=== PATIENT | male | born 1930 | race Two or more races ===

== ENCOUNTER 2018-05-20 07:22 | Inpatient (IN) | payer MEDICARE ==
[~2018-05-20] VITALS: Ht 177.8 cm; Wt 46.3 kg
[~2018-05-20 07:22] MED LIST: ACET-868 PO; AMLO5TAB7 PO; ATOR10TA PO; BISA10SU8 RC; CLOP75TA15 PO; DIVA125C2 PO; DOCU-141 PO; HYDR-4384 PO; MAGN400O6 PO; MERO500V3 IV; NA P133E RC; SENN-168 PO; ZOLP5TAB2 PO
--- NOTE | 2018-05-20 07:40 | NUR ---
Annabelle garcía in ED - 05/20/18 at 0806 by MICHELLE PT TAISHA RA 88 from [facility] "was found on the side of his bed, PT AOX2, NOT IN RESPIRATORY DISTRESS, V/S STABLE, KEPT RESTED AND COMFORTABLE.
--- NOTE | 2018-05-20 07:40 | NUR ---
PT TAISHA RA 88 from [facility] "was found on the side of his bed, PT AOX3, NOT IN RESPIRATORY DISTRESS, V/S STABLE, KEPT RESTED AND COMFORTABLE.
--- NOTE | 2018-05-20 07:41 | NUR ---
DR. GRIDER AT BEDSIDE FOR EVAL.
--- NOTE | 2018-05-20 08:06 | NUR ---
DOUBLE LINE INSERTED, LABS DRAWNED, EKG DONE REFER TO DR. GRIDER.
--- NOTE | 2018-05-20 08:11 | NUR ---
WHEELED TO [facility] VIA [facility].
[2018-05-20 08:12] LABS: BASOPHILS # (AUTO) 0.1 /CMM (0.0-0.2); BASOPHILS % (AUTO) 0.7 % (0.0-2.0); EOSINOPHILS % (AUTO) 0.6 % (0.0-6.0); HEMATOCRIT 33 % (39-51); LYMPHOCYTES # (AUTO) 1.2 /CMM (0.8-4.8); LYMPHOCYTES % (AUTO) 10.9 % (20.0-44.0); MEAN CORPUSCULAR HGB CONC 33 g/dl (31.0-36.0); MEAN CORPUSCULAR VOLUME 98 fL (80-96); MONOCYTES # (AUTO) 0.7 /CMM (0.1-1.30); MONOCYTES % (AUTO) 6.6 % (2.0-12.0); NEUTROPHILS # (AUTO) 8.9 /CMM (1.8-8.9); NEUTROPHILS % (AUTO) 81.2 % (43.0-81.0); PLATELET COUNT (AUTO) 376 /CMM (150-450)
[2018-05-20 08:20] LABS: ALANINE AMINOTRANSFERASE 20 U/L (12-78); ALBUMIN 2.5 g/dL (3.4-5.0); ALKALINE PHOSPHATASE 107 U/L (46-116); ASPARTATE AMINOTRANSFERASE 23 U/L (15-37); BILIRUBIN,DIRECT 0.1 mg/dL (0.0-0.2); BILIRUBIN,TOTAL 0.4 mg/dL (0.2-1.0); CALCIUM, SERUM 9.6 mg/dL (8.5-10.1); CARBON DIOXIDE 26 mmol/L (21-32); CHLORIDE 120 mmol/L (98-107); CREATININE 2.2 mg/dL (0.6-1.3); GLUCOSE 122 mg/dL (74-106); POTASSIUM 4.6 mmol/L (3.5-5.1); SODIUM SERUM 155 mmol/L (136-145); TOTAL PROTEIN, SERUM 7.2 g/dL (6.4-8.2); UREA NITROGEN, BLOOD 51 mg/dL (7-18)
--- NOTE | 2018-05-20 08:26 | NUR ---
PT BACK FROM RADIOLOGY.
[2018-05-20] MEDS ORDERED: IV NS 0.9% 250 ML BAG IV ONE (10:00)
[2018-05-20] MEDS ORDERED: TDAP [DIPH/PERTUSSIS/TET] 0.5 ML VIAL IM ONE ×2 (11:00→11:10)
--- NOTE | 2018-05-20 13:35 | NUR ---
PT IS ASSIGNED TO [facility]#:308-2, DX: HYPERNATREMIA, AND ACCEPTING MD: JOE
--- NOTE | 2018-05-20 14:17 | NUR ---
report given to temi dunlap for za, pt v/s stable, kept rested and comfortable.
[2018-05-20 14:39] VITALS: BP 155/93
--- NOTE | 2018-05-20 14:45 | NUR ---
QUARTER TRIMMERTIP BANDER 87 YEARS OLD MALE BROUGHT IN VIA GURNEY FORM ER. [facility]. PATIENT IS CONFUSED, SPEECH UNCLEAR. SKIN CHECK DONE WITH GUERDA DEXTER. PATIENT HAS NO PERSONAL BELONGINGS UPON ARRIVAL TO THE UNIT. MAINTAINED SAFETY, WILL CONT TO MONITOR. NOTIFIED DR. DIAZ.
[2018-05-20] MEDS ORDERED: ACETAMINOPHEN 325 MG TABLET PO PRN (15:30)
[2018-05-20] MEDS ORDERED: MAGNESIUM HYDROXIDE 30 ML UDC PO PRN (15:30)
[2018-05-20] MEDS ORDERED: ZOLPIDEM TARTRATE 5 MG TABLET PO PRN (15:30)
[2018-05-20] MEDS ORDERED: MAG HYDROX/AL HYDROX/SIMETH 30 ML UDC PO PRN (15:30)
[2018-05-20] MEDS ORDERED: Z GUARD REMEDY 2 OZ OINT TP PRN (15:30)
[2018-05-20] MEDS ORDERED: HYDROCODONE/APAP 5/325MG 1 EACH TABLET PO PRN (15:30)
[2018-05-20] MEDS ORDERED: ONDANSETRON HCL/PF 4 MG/2 ML VIAL IVP PRN (15:30)
[2018-05-20 16:00] VITALS: BP 155/93
[2018-05-20] MEDS: IV D5/0.45 NACL 1,000 ML IV PRN (16:05)
--- NOTE | 2018-05-20 18:14 | NUR ---
WEBBING SEAMER POUND NET CLOSING NOTES Patient in bed, assisted with feeding. On low flow oxygen at 2L/min via NC, sat. 92%. Sinus rhythm in the tele monitor. IVF infusing, maintained at 75ml/hr. Right arm, right elbow skin tear, dressing CDI. Wound consulted. Incontinent of bladder, urine catheterized, urine specimen send to lab for test. Maintained safety, bed low and locked. Will endorse to oncoming RN. Med recon to follow up.
--- NOTE | 2018-05-20 19:30 | NUR ---
SR. STRATEGIC SOURCING MANAGER NOTES RECEIVED ON BED WATCHING TV PROGRAM,A/O X1,BREATHING REGULAR 94% ON 2L/NC.SR WITH PAC-79 ON TELE MONITOR.INCONTINENT OF URINE,USING DIAPER.WITH IVF INFUSING AT 75ML/HR RATE VIA IV PUMP.SITE PATENT ON RFA.DVT PUMP IN USED FOR DVT PROPHYLAXIS.FALL PRECAUTION OBSERVED,CALL LIGHT IN REACH,NEEDS ANTICIPATED.
[2018-05-20 20:00] VITALS: BP 156/84
[2018-05-20] MEDS ORDERED: BISACODYL SUPP (10 MG) 10 MG/SUPP.RECT SUPP.RECT RC PRN (20:30)
--- NOTE | 2018-05-20 20:30 | NUR ---
DIRECTOR PAYER NOTES CONFUSED,HE PULEED HIS SALINE LOCK,TOOK OFF HIS TELE MONITOR AND DVT PUMP.
[2018-05-20 21:04] LABS: APPEARANCE,URINE CLEAR (CLEAR); BILIRUBIN,URINE NEGATIVE (NEGATIVE); BLOOD, URINE MODERATE Ery/uL (NEGATIVE); COLOR,URINE YELLOW (YELLOW); KETONES,URINE NEGATIVE (NEGATIVE); LEUKOCYTE ESTERASE ,URINE MODERATE (NEGATIVE); NITRITE, URINE POSITIVE (NEGATIVE); PH,URINE 6.5 (5.0-8.0); PROTEIN,URINE 100 mg/dl (NEGATIVE); UGLUCOSE NEGATIVE (NEGATIVE); UROBILINOGEN,URINE 0.2 EU/dL (0.2)
[2018-05-20 21:08] LABS: BACTERIA,URINE Moderate /HPF (None Seen); SQUAMOUS EPITHELIAL CELL,UR Few /HPF (None Seen); WBC,URINE 81-100 /HPF (0-3)
[2018-05-20] MEDS: SENNOSIDES 8.6 MG TABLET PO SCH (21:28)
--- NOTE | 2018-05-20 21:30 | NUR ---
GASKET INSPECTOR NOTES DUE PO MEDS GIVEN WITH APPLE SAUCE,TAKEN WELL.NEGATIVE FOR ASPIRATION
--- NOTE | 2018-05-20 21:45 | NUR ---
FINE UNHAIRER NOTES EVENING CARE RENDERED BY ISACC BELL,TOLERATED WELL.NOTED SLIGHT REDNESS BONY SACRAL AREA.CLEANSE WITH SOAP AND WATER AND APPLIED ZGUARD,MEPILEX
[2018-05-20] MEDS ORDERED: ATORVASTATIN 10 MG TABLET PO SCH (22:00)
[2018-05-21 04:00] VITALS: BP 120/68
--- NOTE | 2018-05-21 06:21 | NUR ---
NIGHT CLUB MANAGER NOTES CALM AND QUIET THRU OUT SHIFT,IVF INFUSING,SITE PATENT LEFT AC.NO FALL ,NO INJURY.CALL LIGHT IN REACH,NEEDS ANTICIPATED.WILL GIVE REPORT TO MEGHAN DUMONT RN FOR LARA.
[2018-05-21 06:29] LABS: BASOPHILS % (AUTO) 0.4 % (0.0-2.0); EOSINOPHILS % (AUTO) 0.9 % (0.0-6.0); HEMATOCRIT 28 % (39-51); HEMOGLOBIN 9.1 g/dL (13.5-17.5); LYMPHOCYTES # (AUTO) 0.9 /CMM (0.8-4.8); LYMPHOCYTES % (AUTO) 8.3 % (20.0-44.0); MEAN CORPUSCULAR HGB CONC 33 g/dl (31.0-36.0); MEAN CORPUSCULAR VOLUME 99 fL (80-96); MONOCYTES # (AUTO) 0.8 /CMM (0.1-1.30); MONOCYTES % (AUTO) 7.5 % (2.0-12.0); NEUTROPHILS # (AUTO) 8.5 /CMM (1.8-8.9); NEUTROPHILS % (AUTO) 82.9 % (43.0-81.0); PLATELET COUNT (AUTO) 287 /CMM (150-450); RED BLOOD CELL COUNT(AUTO) 2.79 MIL/uL (4.5-6.0); WHITE BLOOD COUNT (AUTO) 10.3 K/uL (4.3-11.0)
[2018-05-21 06:48] LABS: CHOLESTEROL 147 mg/dL (<200); HDL CHOLESTEROL 58 mg/dL (40-60); LDL 69 mg/dL (0-99); TRIGLYCERIDES 72 mg/dL (30-150)
[2018-05-21 06:52] LABS: CALCIUM, SERUM 8.9 mg/dL (8.5-10.1); CARBON DIOXIDE 25 mmol/L (21-32); CHLORIDE 121 mmol/L (98-107); CREATININE 1.9 mg/dL (0.6-1.3); GLUCOSE 108 mg/dL (74-106); MAGNESIUM 1.8 mg/dL (1.8-2.4); POTASSIUM 4.8 mmol/L (3.5-5.1); SODIUM SERUM 155 mmol/L (136-145); UREA NITROGEN, BLOOD 45 mg/dL (7-18)
[2018-05-21 08:00] VITALS: BP 126/68
[2018-05-21] MEDS: DIVALPROEX SODIUM 125 MG CAP.SPRINK PO SCH (09:34)
[2018-05-21] MEDS: AMLODIPINE BESYLATE 5 MG TABLET PO SCH (09:35)
[2018-05-21] MEDS: IV D5/0.45 NACL 1,000 ML IV PRN (09:44)
[2018-05-21] MEDS: ASPIRIN 81 MG TAB.CHEW PO SCH (14:22)
[2018-05-21 16:00] VITALS: BP 130/70
[2018-05-21] MEDS: DOCUSATE SODIUM 100 MG CAPSULE PO SCH (18:58)
--- NOTE | 2018-05-21 19:20 | NUR ---
HAND BULLDOZER NOTE PATIENT RESTING IN BED IN STABLE CONDITION, NO RESPIRATORY DISTRESS NOTED, ON O2 VIA NASAL CANNULA AT 2LPM. NO SIGNS OF PAIN. MITTENS ON DUE TO PATIENT ATTEMPTING TO PULL OUT IV SITE OUT. IV FLUIDS INFUSING ORDERED. HEAD OF BED ELEVATED, BED IN LOW LOCKED POSITION, SIDE RAILS UP, CALL LIGHT WITHIN REACH, ENDORSED TO SHIRT IRONER SUPERVISOR NURSE FOR CONTINUITY OF CARE.
--- NOTE | 2018-05-21 19:30 | NUR ---
MS RN NOTES ON BED WATCHING TV PROGRAM,CALM AND QUIET,A/O X1,CONFUSED.ISOLATION PRECAUTION FOR HX ESBL URINE.FALL PRECAUTION,BED ALARM TRIGGERED,BILATERAL MITTENS IN USED,PT TRIED TO PULL OUT IV TUBINGS.DVT PUMP IN USED FOR DVT PROHYLAXIS,RIGHT ARM SKIN COVERED WITH XEROFORM AND KERLIX ORDERED.WILL CONTINUE TO MONITOR STATUS.
[2018-05-21 20:00] VITALS: BP 106/58
[2018-05-21] MEDS: SENNOSIDES 8.6 MG TABLET PO SCH (21:32)
--- NOTE | 2018-05-22 | NUR ---
MS RN NOTES UNABLE TO REPOSITION,SOUND ASLEEP.
[2018-05-22] MEDS: IV D5/0.45 NACL 1,000 ML IV PRN (04:57)
--- NOTE | 2018-05-22 05:00 | NUR ---
MS RN NOTES DRESSING CHANGED DONE RIGHT ARM SKIN TEAR.BILATERAL MITTENS RE APPLIED TO BOTH HANDS FOR SAFETY
--- NOTE | 2018-05-22 06:13 | NUR ---
MS RN NOTES NO SIGNIFICANT CHANGE STATUS THRU OUT SHIFT.CALM AND ABLE TO SLEEP.IVF INFUSING.REMAINS CONFUSED.ISOLATION DISCONTINUED.NEGATIVE FOR C-DIFF.IN NO ACUTE DISTRESS.WILL ENDORSE TO DAY NURSE FOR LARA.
[2018-05-22 08:00] VITALS: BP 104/61
[2018-05-22 08:35] VITALS: BP 104/61
[2018-05-22] MEDS: DIVALPROEX SODIUM 125 MG CAP.SPRINK PO SCH (08:44)
[2018-05-22] MEDS: ASPIRIN 81 MG TAB.CHEW PO SCH (08:44)
[2018-05-22] MEDS: AMLODIPINE BESYLATE 5 MG TABLET PO SCH (08:45)
[2018-05-22 09:59] LABS: BASOPHILS # (AUTO) 0.1 /CMM (0.0-0.2); BASOPHILS % (AUTO) 0.4 % (0.0-2.0); EOSINOPHILS % (AUTO) 0.5 % (0.0-6.0); HEMATOCRIT 27 % (39-51); HEMOGLOBIN 8.5 g/dL (13.5-17.5); LYMPHOCYTES # (AUTO) 0.8 /CMM (0.8-4.8); LYMPHOCYTES % (AUTO) 5.3 % (20.0-44.0); MEAN CORPUSCULAR HGB CONC 32 g/dl (31.0-36.0); MEAN CORPUSCULAR VOLUME 101 fL (80-96); MONOCYTES # (AUTO) 0.7 /CMM (0.1-1.30); MONOCYTES % (AUTO) 4.7 % (2.0-12.0); NEUTROPHILS # (AUTO) 12.8 /CMM (1.8-8.9); NEUTROPHILS % (AUTO) 89.1 % (43.0-81.0); PLATELET COUNT (AUTO) 259 /CMM (150-450); RED BLOOD CELL COUNT(AUTO) 2.65 MIL/uL (4.5-6.0); WHITE BLOOD COUNT (AUTO) 14.3 K/uL (4.3-11.0)
[2018-05-22 10:09] LABS: CALCIUM, SERUM 8.9 mg/dL (8.5-10.1); CARBON DIOXIDE 24 mmol/L (21-32); CHLORIDE 119 mmol/L (98-107); CREATININE 1.8 mg/dL (0.6-1.3); GLUCOSE 109 mg/dL (74-106); MAGNESIUM 1.7 mg/dL (1.8-2.4); POTASSIUM 4.2 mmol/L (3.5-5.1); SODIUM SERUM 154 mmol/L (136-145); UREA NITROGEN, BLOOD 40 mg/dL (7-18)
--- NOTE | 2018-05-22 11:26 | NUR ---
WOUND CARE CONSULT WOUND CARE RECEIVED CONSULT FOR MULTIPLE SKIN TEARS-RIGHT ARM. WOUND CARE WILL DEFER CONSULT AND ALL TREATMENT PLANS TO PLASTIC SURGICAL TEAM WHO ARE CURRENTLY FOLLOWING. PATIENT WITH ISAAC AT 15, ALL PRESSURE ULCER PREVENTION MEASURES ARE NOTED TO BE IN PLACE. PATIENT IS NOTED TO BE ON COMFORT MEASURES ONLY. WILL SEE PRN.
--- NOTE | 2018-05-22 11:30 | NUR ---
MS RN NOTES-- PT SEEN AND EXAMINED BY DR. SANTACRUZ.
--- NOTE | 2018-05-22 11:30 | NUR ---
MS RN NOTES-- PT SEEN AND EXAMINED BY DR. SANTACRUZ.
[2018-05-22] MEDS: IV D5W 1,000 ML IV PRN (15:57)
[2018-05-22 16:32] VITALS: BP 113/78
[2018-05-22] MEDS: ENSURE ENLIVE CHOC 237 ML CAN PO SCH (17:48)
[2018-05-22] MEDS: DOCUSATE SODIUM 100 MG CAPSULE PO SCH (17:48)
--- NOTE | 2018-05-22 18:33 | NUR ---
MS RN OPENING NOTES RECEIVED PT LAYING IN BED WITH HOB SLIGHTLY ELEVATED. PT IS RESTING COMFORTABLY, EASILY AROUSABLE. RESPIRATIONS ARE EVEN AND UNLABORED, NOT IN ANY ACUTE DISTRESS NOTED. NO C/O ANY PAIN, SOB, N/V AT THIS TIME. IV SITE TO LAC INTACT, NO INFILTRATION NOTED. DRESSING KEPT CLEAN AND DRY. WILL REPOSITION PER PROTOCOL. CALL LIGHT IS LEFT WITHIN REACH. WILL CONTINUE TO MONITOR THROUGHOUT SHIFT FOR CONTINUITY OF CARE. Addendum: 05/22/18 at 1846 by JAY ALMANZA RN LATE ENTRY- OPENING NOTES
--- NOTE | 2018-05-22 18:45 | NUR ---
MS RN CLOSING NOTES PT'S NEEDS ANTICIPATED. PT IS A/O X1, AFEBRILE. RESPIRATIONS ARE EVEN AND UNLABORED, NOT IN ANY ACUTE DISTRESS NOTED. NO FACIAL GRIMACING OR MOANING NOTED. IV TO LAC INTACT, NO INFILTRATION NOTED. DRESSING IS KEPT CLEAN AND DRY. IV FLUIDS RUNNING AND TOLERATING WELL. SAFETY MEASURES ARE IN PLACE. ENDORSED TO NEXT SHIFT FOR CONTINUITY OF CARE.
--- NOTE | 2018-05-22 19:39 | NUR ---
MS/RN OPENING NOTES RECEIVED PATIENT IN BED, AWAKE, UNABLE TO FOLLOW SIMPLE COMMAND, RESPIRATIONS EVEN AND UNLABORED, WITH OXYGEN VIA NC AT 2L, SKIN DRY TO TOUCH, REQUIRE MITTEN RESTRAINTS FOR SAFETY. ON IV HYDRATION AT D5W RUNNING AT 75ML /HR WITH NO S/S OF INFILTRATION. BED LOCKED, MONITORED FOR CIRCULATION , REPOSITION FOR COMFORT. RECEIVED ENDORSEMENT FROM AM RN FOR LARA. BED LOCKED.
[2018-05-22 20:00] VITALS: BP 133/78
[2018-05-22 20:11] VITALS: BP 133/78
[2018-05-22] MEDS: SENNOSIDES 8.6 MG TABLET PO SCH (22:06)
--- NOTE | 2018-05-23 06:06 | NUR ---
308-2MS/RN NOTES PATIETN IN BED, ABLE TO SLEEP INTERMITENTLY DURING THE NIGHT, REPOSITIONED FOR COMFORT, KEPT SKIN DRY AND INTACT, MONITORED FOR SAFETY, IV ON LEFT AC FOR HYDRATION, OFFERED FLUIDS, RESPIRATIONS EVEN AND UNLABORED. WILL CONTINUE TO MONITOR. WILL ENDORSE TO AM RN FOR LARA.
--- NOTE | 2018-05-23 07:05 | NUR ---
MS RN INITIAL NOTES Report received at bedside. Patient received in bed, sleeping comfortably, easily aroused. On fluid therapy for dehydration. Not in any type of distress. No facial grimacing or moaning noted. Safety measures in place. Will continue to monitor and assess patient
[2018-05-23 08:00] VITALS: BP 113/66
[2018-05-23] MEDS: ENSURE ENLIVE CHOC 237 ML CAN PO SCH ×3 (08:30→17:35)
[2018-05-23] MEDS: ASPIRIN 81 MG TAB.CHEW PO SCH (08:33)
[2018-05-23] MEDS: AMLODIPINE BESYLATE 5 MG TABLET PO SCH (08:33)
[2018-05-23] MEDS: DIVALPROEX SODIUM 125 MG CAP.SPRINK PO SCH (08:33)
[2018-05-23 09:32] LABS: BASOPHILS # (AUTO) 0.1 /CMM (0.0-0.2); BASOPHILS % (AUTO) 0.8 % (0.0-2.0); HEMATOCRIT 27 % (39-51); LYMPHOCYTES # (AUTO) 0.7 /CMM (0.8-4.8); MEAN CORPUSCULAR HGB CONC 33 g/dl (31.0-36.0); MEAN CORPUSCULAR VOLUME 100 fL (80-96); MONOCYTES # (AUTO) 0.9 /CMM (0.1-1.30); MONOCYTES % (AUTO) 9.6 % (2.0-12.0); NEUTROPHILS # (AUTO) 7.5 /CMM (1.8-8.9); NEUTROPHILS % (AUTO) 80.6 % (43.0-81.0); PLATELET COUNT (AUTO) 275 /CMM (150-450); RED BLOOD CELL COUNT(AUTO) 2.74 MIL/uL (4.5-6.0); WHITE BLOOD COUNT (AUTO) 9.3 K/uL (4.3-11.0)
[2018-05-23 09:38] LABS: CALCIUM, SERUM 9.1 mg/dL (8.5-10.1); CARBON DIOXIDE 23 mmol/L (21-32); CHLORIDE 116 mmol/L (98-107); CREATININE 1.9 mg/dL (0.6-1.3); GLUCOSE 80 mg/dL (74-106); POTASSIUM 4.4 mmol/L (3.5-5.1); SODIUM SERUM 150 mmol/L (136-145); UREA NITROGEN, BLOOD 36 mg/dL (7-18)
[2018-05-23] MEDS: IV D5W 1,000 ML IV PRN (12:47)
--- NOTE | 2018-05-23 13:15 | NUR ---
MS RN CLOSING NOTES Report given at bedside. Patient remained in bed, awake, easily aroused. Not in any type of distress. No facial grimacing or moaning noted. On continuous oxygen therapy with no SOB noted. On comfort measures. Dressings changed. Turned and repositioned every two hours per protocol with offloading of bilateral heels and elbows. Bed in locked and lowest position with call light within reach and bed alarm on. Endorsed to oncoming shift nurse.
--- NOTE | 2018-05-23 13:20 | NUR ---
MS RN NOTES PATIENT RECEIVED RESTING INSIDE ROOM. SLEEPING, AROUSABLE THROUGH VERBAL AND TACTILE STIMULI. ON XYGEN AT 2L/MIN VIA NC. NO ACUTE DISTRESS. PATIENT DENIES ANY PAIN OR DISCOMFORT. NO FACIAL GRIMACE NOTED AT THIS TIME. IV INTACT AND PATENT. MAINTAINED SAFETY MEASURES. COMFORT MEASURES IN PLACE. BILATERAL HAND MITTENS IN PLACE. WILL CONTINUE TO MONITOR. BED LOCKED AND IN LOW POSITION. BILATERAL UPPER SIDE RAILS UP AND LOCKED. CALL LIGHT WITHIN EASY REACH.
[2018-05-23] MEDS ORDERED: NEUTRA PHOS 1 POWD.PACKET PO ONE (14:30)
[2018-05-23 16:00] VITALS: BP 119/60
[2018-05-23] MEDS: DOCUSATE SODIUM 100 MG CAPSULE PO SCH (17:35)
--- NOTE | 2018-05-23 19:00 | NUR ---
MS RN NOTES PATIENT RESTING INSIDE ROOM. SLEEPING, EASILY AROUSABLE THROUGH VERBAL AND TACTILE STIMULI. BREATHING EVEN AND UNLABORED. ON O2 AT 2L/MIN. MAINTAINED ASPIRATION PRECAUTION. NURSING NEEDS ATTENDED AND MET. PATIENT ASSISTED TO A COMFORTABLE POSITION Q2 WITH POSITIONING PILLOWS FOR CIRCULATION AND COMFORT. PATIENT WITH EPISODES OF TURNING BACK TO SUPINE POSITION AFTER REPOSITIONING. REINFORCED TEACHING NEEDED. WILL ENDORSE TO INCOMING SHIFT FOR LARA. BED LOCKED AND IN LOW POSITION. BILATERAL UPPER SIDE RAILS UP AND LOCKED. CALL LIGHT WITHIN EASY REACH
[2018-05-23 21:10] VITALS: BP 148/78
[2018-05-23] MEDS: SENNOSIDES 8.6 MG TABLET PO SCH (22:09)
--- NOTE | 2018-05-24 06:32 | NUR ---
MS RN NOTES PT AWAKE. CONFUSED AT TIMES. NOT IN ANY DISTRESS. NO SOB NOTED. DENIES ANY PAIN OR DISCOMFORT AT THIS TIME. WITH IV-HL PATENT & INTACT. AM CARE DONE. MONITORED ACCORDINGLY. CALL LIGHT WITHIN REACH. BED IN LOWEST POSITION. SR UP X 3 WITH BED ALARM ON FOR SAFETY. WILL ENDORSE TO NEXT SHIFT.
--- NOTE | 2018-05-24 07:15 | NUR ---
MS BRIAN INITIAL NOTES Report received at bedside. Patient received in bed, awake, sitting by edge of the bed. Assisted patient back to sleep. On fluid therapy for dehydration and continue to encourage oral intake. Not in any type of distress. Denies any type of pain. On comfort measures only. Safety measures in place. Bed alarm on. Will continue to monitor and assess patient
[2018-05-24 08:00] VITALS: BP 144/80
[2018-05-24] MEDS: ENSURE ENLIVE CHOC 237 ML CAN PO SCH ×2 (08:45→12:26)
[2018-05-24 08:46] VITALS: BP 144/80
[2018-05-24] MEDS: ASPIRIN 81 MG TAB.CHEW PO SCH (08:46)
[2018-05-24] MEDS: DIVALPROEX SODIUM 125 MG CAP.SPRINK PO SCH (08:46)
[2018-05-24] MEDS: AMLODIPINE BESYLATE 5 MG TABLET PO SCH (08:46)
[2018-05-24] MEDS: IV D5W 1,000 ML IV PRN (08:48)
[2018-05-24 11:52] LABS: CALCIUM, SERUM 8.7 mg/dL (8.5-10.1); CARBON DIOXIDE 26 mmol/L (21-32); CHLORIDE 105 mmol/L (98-107); CREATININE 1.5 mg/dL (0.6-1.3); GLUCOSE 144 mg/dL (74-106); PHOSPHORUS 2.3 mg/dL (2.5-4.9); POTASSIUM 3.7 mmol/L (3.5-5.1); SODIUM SERUM 137 mmol/L (136-145); UREA NITROGEN, BLOOD 35 mg/dL (7-18)
[2018-05-24] MEDS ORDERED: PNEUMOCOCCAL 23-VAL P-SAC VAC 0.5 ML VIAL SQ ONE (12:00)
--- NOTE | 2018-05-24 14:15 | NUR ---
MS BRANNER MACHINE TENDER NOTES Report given to [facility] [phone]
--- NOTE | 2018-05-24 15:10 | NUR ---
MS RESEARCH SCIENTIST NOTES [facility] Report given to Viviana. Picked up by [facility] @1500 via [facility] in stable condition. Discharge instructions and papers given to EMT. Belongings form signed by two nurses due to mental status. Photos taken and placed in chart. IV access removed: cath tip intact and no bleeding noted. ID band removed. Not in any type distress. Kept patient clean and dry. All due meds given and tolerated. Afebrile. 123/72 79 16 98.1 98% @2lpm via nasal cannula
== END 2018-05-24 15:10 | DRG 682 ==
LOC: ER 07:24 → TELE 14:23 → MED 05-21 08:53
PROVIDERS: ADMIT Internal Medicine; ATTEND Nurse Practitioner Acute Care
DX: N17.0 Acute kidney failure with tubular necrosis (principal); G93.41 Metabolic encephalopathy; E43 Unspecified severe protein-calorie malnutrition; E87.0 Hyperosmolality and hypernatremia; C91.10 Chronic lymphocytic leukemia of B-cell type not having achieved remission; N39.0 Urinary tract infection, site not specified; Z68.1 Body mass index [BMI] 19.9 or less, adult; I12.9 Hypertensive chronic kidney disease with stage 1 through stage 4 chronic kidney disease, or unspecified chronic kidney disease; N18.9 Chronic kidney disease, unspecified; Y92.122 Bedroom in nursing home as the place of occurrence of the external cause; S80.211A Abrasion, right knee, initial encounter; S80.212A Abrasion, left knee, initial encounter; S41.111A Laceration without foreign body of right upper arm, initial encounter; L89.151 Pressure ulcer of sacral region, stage 1; L98.9 Disorder of the skin and subcutaneous tissue, unspecified; D63.8 Anemia in other chronic diseases classified elsewhere; E11.22 Type 2 diabetes mellitus with diabetic chronic kidney disease; E78.5 Hyperlipidemia, unspecified; E86.1 Hypovolemia; F03.90 Unspecified dementia, unspecified severity, without behavioral disturbance, psychotic disturbance, mood disturbance, and anxiety; I25.10 Atherosclerotic heart disease of native coronary artery without angina pectoris; N40.0 Benign prostatic hyperplasia without lower urinary tract symptoms; R62.7 Adult failure to thrive; W18.30XA Fall on same level, unspecified, initial encounter; Z51.5 Encounter for palliative care; Z79.02 Long term (current) use of antithrombotics/antiplatelets; Z86.73 Personal history of transient ischemic attack (TIA), and cerebral infarction without residual deficits; Z87.442 Personal history of urinary calculi; E86.0 Dehydration
CPT/HCPCS: 36415; 70450-TC; 71045-TC; 72125-TC; 73080-TC; 73200-TC; 73521; 80048-TC; 80061-TC; 80076-TC; 81000-TC; 83605-TC; 83735-TC; 84100-TC; 84484-TC; 85025-TC; 85730-TC; 87081-TC; 87086-TC; 90715; 97116-TC; 97530-TC; A4606; A6402; G0378; J3490; J7040; J7070; Z7610